=== PATIENT | female | born 1950 | race African-American/Black ===

== ENCOUNTER 2016-07-21 17:20 | Inpatient (IN) | payer MEDICARE, BC ==
[~2016-07-21 17:20] MED LIST: FOLI400T PO; LEVEMIR SQ; LISI-519 PO; METO50TA PO; PHOS667C5 PO; POTA-163 PO; REGL10TA5 PO
[2016-07-21 17:48] VITALS: BP 156/70; PULSE 62; RESP 15; TEMP 96.6; O2SAT 97
[2016-07-21 19:00] VITALS: BP 171/68; PULSE 76; RESP 17; TEMP 96.6; O2SAT 99
[2016-07-21] MEDS ORDERED: SODIUM CHLORIDE 0.9% FLUSH 10 ML FLUSH IV FLUSH PRN (20:00)
[2016-07-21] MEDS: PANTOPRAZOLE SOD 40 MG DELAYED RELEASE TAB PO SCH (20:00)
[2016-07-21] MEDS ORDERED: NALOXONE HCL 0.4 MG/ML AMP IV PRN (20:00)
[2016-07-21] MEDS ORDERED: Post-op Orders (for Pharmacy) MISC XX ONE (20:00)
[2016-07-21] MEDS ORDERED: MORPHINE SULFATE 4 MG/ML INJ IV PRN (20:00)
[2016-07-21] MEDS ORDERED: ONDANSETRON HCL 4 MG/2 ML VIAL IV PRN (20:00)
--- NOTE | 2016-07-21 20:14 | PD.CAR.PN ---
CVT Progress Note Subjective/Hospital Course: 65-year-old female who fell in the morbid theater and transferred to the emergency room and from there to [facility] for further observation. Patient sustained contusion of the left chest with a rib fracture and possibly small splenic contusion and will be admitted to my service for observation. Physical examination reveals pleasant 65-year-old lady awake alert and oriented Normocephalic Bilateral carotid pulses with faint right-sided bruit Chest with bilateral breath sounds and splinting of the left chest Abdomen is soft tender in left upper quadrant with mild rebound but no guarding. The pain is mainly over the lower rib cage rather than actual abdominal cavity Pelvis is stable extremities are within normal limits with good proximal and distal pulses and no deficit CT scan was preformed and all tone emergency room and revealed fracture of the left ninth rib and possibly small splenic laceration. In the context on questioning the splenic laceration issue for the seems to be almost an artifact on the CAT scan Either way patient this point is stable She will require peritoneal dialysis tonight and medicine has been consulted for management of her additional medical problems The exam, history, and the medical decision-making described in the above note were completed. I reviewed and agree with the findings presented. I attest that I had a [id number] encounter with the patient on the same day, and personally performed and documented my assessment and findings in the medical record. Critical care time 38 minutes. Objective: Vital Signs Date Time Temp Pulse Resp B/P Pulse Ox O2 Delivery O2 Flow Rate FiO2 07/21/16 17:48 96.6 62 15 156/70 97 Keaton Davis MD Jul 21, 2016 20:14
[2016-07-21] MEDS ORDERED: GLUCAGON 1 MG/ML VIAL OTHER PRN (20:15)
[2016-07-21] MEDS ORDERED: DEXTROSE 50% IN WATER 50 ML VIAL(D50) IV PUSH PRN (20:15)
[2016-07-21] MEDS: INSULIN ASPART SUPPLEMENTAL SCALE SQ SCH (21:00)
[2016-07-21] MEDS: SODIUM CHLORIDE 0.9% FLUSH 10 ML FLUSH IV FLUSH SCH (21:00)
[2016-07-21] MEDS: DOCUSATE SODIUM 100 MG CAP PO SCH (21:00)
[2016-07-21] MEDS: METOPROLOL TARTRATE 50 MG TAB PO SCH (22:30)
[2016-07-22] VITALS: BP 182/81; PULSE 66; RESP 17; TEMP 96.9; O2SAT 98
[2016-07-22 04:00] VITALS: BP 126/83; PULSE 43; RESP 18; TEMP 95.7; O2SAT 98
[2016-07-22] MEDS: INSULIN ASPART SUPPLEMENTAL SCALE SQ SCH ×4 (06:01→21:00)
--- NOTE | 2016-07-22 07:05 | RADRPT ---
EXAM DATE/TIME: 07/22/2016 06:15 [facility] COMPARISON: CHEST SINGLE AP, July 21, 2016, 13:45. INDICATIONS : Shortness of breath. MEDICAL HISTORY : Diabetes mellitus type II. Renal failure, chronic. SURGICAL HISTORY : ENCOUNTER: Subsequent ACUITY: 2 days PAIN SCORE: 5/10 LOCATION: Bilateral chest FINDINGS: Mild bibasilar atelectasis developing, left slightly more so than right. No perceptible effusion. No pneumothorax. Heart size stable, upper limits of normal. CONCLUSION: Mild bibasilar atelectasis developing. Kehinde Partida MD on July 22, 2016 at 7:04 Board Certified Radiologist. This report was verified electronically.
[2016-07-22 07:30] LABS: AUTOMATED NEUTROPHIL # 7.3 TH/MM3 (1.8-7.7); BASOPHIL # 0.1 TH/MM3 (0-0.2); BASOPHIL % 0.5 % (0.0-2.0); EOSINOPHIL % 0.5 % (0.0-4.0); HEMATOCRIT 40.4 % (35.0-46.0); HEMO FLAGS DIFF FINAL; LYMPH % 14.9 % (9.0-44.0); LYMPHOCYTE # 1.4 TH/MM3 (1.0-4.8); MEAN CELL VOLUME 93.1 FL (80.0-100.0); MEAN CORPUSCULAR HEMOGLOBIN 30.1 PG (27.0-34.0); MEAN CORPUSCULAR HGB CONC 32.3 % (32.0-36.0); MONO % 8.2 % (0.0-8.0); NEUT % 75.9 % (16.0-70.0); PLATELET COUNT 259 TH/MM3 (150-450); RED BLOOD COUNT 4.34 MIL/MM3 (4.00-5.30); RED CELL DISTRIBUTION WIDTH 15.1 % (11.6-17.2); WHITE BLOOD COUNT 9.6 TH/MM3 (4.0-11.0)
[2016-07-22 07:51] LABS: BICARBONATE 27.3 MEQ/L (21.0-32.0); POTASSIUM 3.6 MEQ/L (3.5-5.1)
[2016-07-22 07:54] VITALS: BP 120/65; PULSE 57; RESP 16; TEMP 96.6; O2SAT 100
--- NOTE | 2016-07-22 08:55 | PD.CONS ---
HPI Service Nephrology Consult Requested By Dr. Gaming Reason for Consult ESRD, on PD Primary Care Physician Unknown History of Present Illness Ms. Molina fell yesterday, suffered left sided rib fracture, chest and splenic contusion and was admitted to trauma service. Patient is on PD. I was notified of her admission late last evening. Dialysis was arranged. She appears to have ESRD, diabetes mellitus, and hypertension. Review of Systems Constitutional: COMPLAINS OF: Fatigue Cardiovascular: COMPLAINS OF: Chest pain Gastrointestinal: COMPLAINS OF: Abdominal pain Past Family Social History Allergies: Coded Allergies: Penicillin (Verified Allergy, Severe, Anaphylaxis, 07/21/16) Shellfish (Verified Allergy, Severe, Anaphylaxis, 07/21/16) Past Medical History ESRD, has been on PD for about a year. Type 2 diabetes Hypertension. Atrial fibrillation. Reported Medications Active Ordered Medications Current Medications Medications (Trade) Dose Ordered Sig/Valentin Route Start Time Stop Time Status Last Admin (NS Flush) 2 ml UNSCH PRN IV FLUSH 07/21/16 20:00 (NS Flush) 2 ml BID IV FLUSH 07/21/16 21:00 07/22/16 09:05 (Zofran Inj) 4 mg Q6H PRN IV 07/21/16 20:00 07/21/16 23:16 (Protonix) 40 mg Q24H PO 07/21/16 20:00 (Colace) 100 mg BID PO 07/21/16 21:00 07/22/16 09:05 (Percocet 5-325 Mg) 1 tab Q4H PRN PO 07/21/16 20:00 (Morphine Inj) 1 mg Q3H PRN IV 07/21/16 20:00 07/21/16 22:29 (Narcan Inj) 0.4 mg UNSCH PRN IV 07/21/16 20:00 (Prinivil) 5 mg DAILY PO 07/22/16 09:00 07/22/16 09:05 (Lopressor) 50 mg Q12HR PO 07/21/16 21:00 07/22/16 09:05 (D50w (Vial) Inj) 25 ml UNSCH PRN IV PUSH 07/21/16 20:15 (Glucagon Inj) 1 mg UNSCH PRN OTHER 07/21/16 20:15 (Milk Of Magnesia Liq) 30 ml HS PO 07/22/16 21:00 (Robaxin) 500 mg Q8H PO 07/22/16 09:00 07/22/16 09:05 (Lidoderm 5% Patch.12 Hr) 1 patch DAILY T-DERMAL 07/22/16 09:00 07/22/16 09:04 Miscellaneous Information 1 HS T-DERMAL 07/22/16 21:00 (KCl) 20 meq QID PO 07/22/16 13:00 Family History reviewed, noncontributory Social History , lives in [place], No Tobacco, no ETOH. Physical Exam Vital Signs Vital Signs Date Time Temp Pulse Resp B/P Pulse Ox O2 Delivery O2 Flow Rate FiO2 07/22/16 07:54 96.6 57 16 120/65 100 07/22/16 04:00 95.7 43 18 126/83 98 07/22/16 00:00 96.9 66 17 182/81 98 07/21/16 19:00 96.6 76 17 171/68 99 07/21/16 17:48 96.6 62 15 156/70 97 Physical Exam GENERAL: patient is awake, alert, no distress. SKIN: Warm and dry. HEAD: Normocephalic. EYES: No scleral icterus. No injection or drainage. NECK: Supple, trachea midline. No JVD or lymphadenopathy. CARDIOVASCULAR: Regular rate and rhythm without murmurs, gallops, or rubs. RESPIRATORY: Breath sounds equal bilaterally. No accessory muscle use. GASTROINTESTINAL: Abdomen soft, non-tender, nondistended. MUSCULOSKELETAL: No cyanosis, or edema. BACK: Nontender without obvious deformity. No CVA tenderness. Laboratory Laboratory Tests Test 07/22/16 06:55 White Blood Count 9.6 Red Blood Count 4.34 Hemoglobin 13.0 Hematocrit 40.4 Mean Corpuscular Volume 93.1 Mean Corpuscular Hemoglobin 30.1 Mean Corpuscular Hemoglobin 32.3 Concent Red Cell Distribution Width 15.1 Platelet Count 259 Mean Platelet Volume 8.3 Neutrophils (%) (Auto) 75.9 Lymphocytes (%) (Auto) 14.9 Monocytes (%) (Auto) 8.2 Eosinophils (%) (Auto) 0.5 Basophils (%) (Auto) 0.5 Neutrophils # (Auto) 7.3 Lymphocytes # (Auto) 1.4 Monocytes # (Auto) 0.8 Eosinophils # (Auto) 0.0 Basophils # (Auto) 0.1 CBC Comment DIFF FINAL Differential Comment Sodium Level 136 Potassium Level 3.6 Chloride Level 97 Carbon Dioxide Level 27.3 Anion Gap 12 Blood Urea Nitrogen 45 Creatinine 9.35 Estimat Glomerular Filtration 5 Rate Random Glucose 121 Calcium Level 8.8 Result Diagram: 07/22/1665407/22/16654 Assessment and Plan Problem List: (1) End stage renal disease Plan: We will continue dialysis as per her home regimen. 18 liters, total duration 10.5 hours. Patient reports that she does not make much urine. Monitor fluid and electrolytes. Avoid Gadolinium if MRI is indicated. (2) Type 2 diabetes mellitus Plan: Maintain blood glucose between 140 and 180. Insulin coverage. (3) Hypertension Plan: BP under control. Monitor. (4) Contusion of spleen Plan: Management per surgery. Assessment and Plan Thanks for the consult. She has [employer] equipment, transfer set was changed to [facility] yesterday. After discharge, she needs to call her dialysis unit and have a new transfer set placed. Angel Villalobos MD Jul 22, 2016 08:55
[2016-07-22] MEDS: LIDOCAINE HCL 5% PATCH T-DERMAL SCH (09:04)
[2016-07-22] MEDS: METOPROLOL TARTRATE 50 MG TAB PO SCH ×2 (09:05→21:00)
[2016-07-22] MEDS: LISINOPRIL 5 MG TAB PO SCH (09:05)
[2016-07-22] MEDS: SODIUM CHLORIDE 0.9% FLUSH 10 ML FLUSH IV FLUSH SCH ×2 (09:05→21:00)
[2016-07-22] MEDS: METHOCARBAMOL 500 MG TAB PO SCH ×2 (09:05→17:18)
[2016-07-22] MEDS: DOCUSATE SODIUM 100 MG CAP PO SCH ×2 (09:05→21:00)
--- NOTE | 2016-07-22 11:29 | HHI.PR ---
Subjective Subjective Notes PTD: 1 Objective Vitals/I&O Vital Signs Date Time Temp Pulse Resp B/P Pulse Ox O2 Delivery O2 Flow Rate FiO2 07/22/16 07:54 96.6 57 16 120/65 100 Labs Laboratory Tests Test 07/22/16 06:55 White Blood Count 9.6 Red Blood Count 4.34 Hemoglobin 13.0 Hematocrit 40.4 Mean Corpuscular Volume 93.1 Mean Corpuscular Hemoglobin 30.1 Mean Corpuscular Hemoglobin 32.3 Concent Red Cell Distribution Width 15.1 Platelet Count 259 Mean Platelet Volume 8.3 Neutrophils (%) (Auto) 75.9 Lymphocytes (%) (Auto) 14.9 Monocytes (%) (Auto) 8.2 Eosinophils (%) (Auto) 0.5 Basophils (%) (Auto) 0.5 Neutrophils # (Auto) 7.3 Lymphocytes # (Auto) 1.4 Monocytes # (Auto) 0.8 Eosinophils # (Auto) 0.0 Basophils # (Auto) 0.1 CBC Comment DIFF FINAL Differential Comment Sodium Level 136 Potassium Level 3.6 Chloride Level 97 Carbon Dioxide Level 27.3 Anion Gap 12 Blood Urea Nitrogen 45 Creatinine 9.35 Estimat Glomerular Filtration 5 Rate Random Glucose 121 Calcium Level 8.8 Cecile Storey [facility] Jul 22, 2016 11:29
--- NOTE | 2016-07-22 12:08 | PD.CONS ---
HPI Service [facility] Hospitalists Consult Requested By Dr. Davis Reason for Consult Medical management Primary Care Physician Unknown Diagnoses: History of Present Illness Patient is a 65-year-old female with past medical history of diabetes, CKD on peritoneal on dialysis, hypertension, hyperlipidemia, atrial fibrillation not on anticoagulation was admitted to the trauma service for rib fracture and splenic laceration. Patient states that she was at the movie theaters and somehow was about to sit down and fell between the seats. She hit herself on the left side of her chest and she started experiencing excruciating sharp pain rating it 10 out of 10 with no radiation. She states at that time she has some trouble breathing however this is improved with pain medications. Her pain currently is 6 out of 10. She had some nausea last night however this has resolved. She prefers taking Reglan instead of Zofran. Her chest pain is associated with movement. She currently denies any shortness of breath. She denies any nausea or vomiting at this time. No abdominal pain. She is getting her peritoneal dialysis at this time. She is concerned about her potassium pills. She tells me she takes 20 mEq 4 times a day. She also forgot to notify us that she is on atorvastatin 20 mg at bedtime. She denies any sore throat, runny nose, cough Hospitalist service was consulted for medical management. Review of Systems 10 point review of systems are negative except for those mentioned in the history of present illness. Past Family Social History Allergies: Coded Allergies: Penicillin (Verified Allergy, Severe, Anaphylaxis, 07/21/16) Shellfish (Verified Allergy, Severe, Anaphylaxis, 07/21/16) Past Medical History Diabetes, CK D on peritoneal dialysis, hypertension, hyperlipidemia, atrial fibrillation not on anticoagulation. Past Surgical History 2 C-sections, hysterectomy, cholecystectomy. Reported Medications Reported Meds & Active Scripts Active Reported Folic Acid 400 Mcg Tab 400 Mcg PO DAILY Reglan (Metoclopramide HCl) 10 Mg Tab Unknown Dose PO Metoprolol Tartrate 50 Mg Tab 50 Mg PO DAILY Levemir Inj (Insulin Detemir) 1,000 unit/ 10 ML Vial 20 Units SQ HS Do not mix with any other Insulin. Phoslo (Calcium Acetate (Phosphate Binder)) 667 Mg Cap 667 Mg PO TID take 2 capsules by mouth three times a day Potassium Chloride ER (Potassium Chloride) 20 Meq Tab 20 Meq PO 4 TIMES A DAY Lisinopril 5 Mg Tab 5 Mg PO DAILY Atorvastatin 20 mg at bedtime Family History Mother from a stroke and brain aneurysm. Father from a stroke and hypertension Social History Patient quit smoking 34 years ago. She used to smoke a pack a day for many years. Denies any alcohol use, denies illegal drug use Physical Exam Vital Signs Vital Signs Date Time Temp Pulse Resp B/P Pulse Ox O2 Delivery O2 Flow Rate FiO2 07/22/16 07:54 96.6 57 16 120/65 100 07/22/16 04:00 95.7 43 18 126/83 98 07/22/16 00:00 96.9 66 17 182/81 98 07/21/16 19:00 96.6 76 17 171/68 99 07/21/16 17:48 96.6 62 15 156/70 97 Physical Exam GENERAL: This is a well-nourished, well-developed patient, in no apparent distress. SKIN: No rashes, ecchymoses or lesions. Cool and dry. HEAD: Atraumatic. Normocephalic. No temporal or scalp tenderness. EYES: Pupils equal round and reactive. Extraocular motions intact. No scleral icterus. No injection or drainage. ENT: Nose without drainage. Throat without erythema, tonsillar hypertrophy or exudate. Uvula midline. Airway patent. NECK: Trachea midline. No JVD or lymphadenopathy. Supple, nontender, no meningeal signs. CARDIOVASCULAR: Regular rate and rhythm without murmurs. Patch over left chest noted. Tender to palpation along the rib cage RESPIRATORY: Clear to auscultation. Breath sounds equal bilaterally. No wheezes. GASTROINTESTINAL: Abdomen soft, non-tender, nondistended. Peritoneal dialysis catheter in place. No guarding. MUSCULOSKELETAL: Extremities without edema. No joint tenderness, effusion, or edema noted. No calf tenderness. Negative Homans sign bilaterally. NEUROLOGICAL: Awake and alert. Cranial nerves II through XII intact. Motor and sensory grossly within normal limits. Five out of 5 muscle strength in all muscle groups. Normal speech. Laboratory Laboratory Tests Test 07/22/16 06:55 White Blood Count 9.6 Red Blood Count 4.34 Hemoglobin 13.0 Hematocrit 40.4 Mean Corpuscular Volume 93.1 Mean Corpuscular Hemoglobin 30.1 Mean Corpuscular Hemoglobin 32.3 Concent Red Cell Distribution Width 15.1 Platelet Count 259 Mean Platelet Volume 8.3 Neutrophils (%) (Auto) 75.9 Lymphocytes (%) (Auto) 14.9 Monocytes (%) (Auto) 8.2 Eosinophils (%) (Auto) 0.5 Basophils (%) (Auto) 0.5 Neutrophils # (Auto) 7.3 Lymphocytes # (Auto) 1.4 Monocytes # (Auto) 0.8 Eosinophils # (Auto) 0.0 Basophils # (Auto) 0.1 CBC Comment DIFF FINAL Differential Comment Sodium Level 136 Potassium Level 3.6 Chloride Level 97 Carbon Dioxide Level 27.3 Anion Gap 12 Blood Urea Nitrogen 45 Creatinine 9.35 Estimat Glomerular Filtration 5 Rate Random Glucose 121 Calcium Level 8.8 Result Diagram: 07/22/1665407/22/16654 Imaging Last Impressions Chest X-Ray 07/22/16 06 Signed Impressions: Service Date/Time: Friday, July 22, 2016 06:15 - CONCLUSION: Mild bibasilar atelectasis developing. Kehinde Partida MD Assessment and Plan Assessment and Plan Rib fracture status post fall- pain control and management per general sx ? splenic lac laceration- management per gen sx. Diabetes- takes levemir 20units at home, currently on ISS and doing well. monitor BS. Hypertension- stable, on home meds. hydralazine prn BP>160/90. Monitor. Hyperlipidemia- I have resumed pt's atorvastatin. Thank you for allowing me to take part of Mrs. Molina's care, will follow. Code Status Full code Discussed Condition With Patient and Meliza Reyes MD Jul 22, 2016 12:08 Meliza Reyes MD Jul 22, 2016 12:08
[2016-07-22] MEDS ORDERED: hydrALAZINE HCL 10 MG TAB PO PRN (12:15)
[2016-07-22 12:20] VITALS: BP 119/59; PULSE 52; RESP 16; TEMP 96.9; O2SAT 98
[2016-07-22] MEDS ORDERED: DOCU1CAP39 PO (13:00)
[2016-07-22] MEDS ORDERED: MILKSUS PO (13:00)
[2016-07-22] MEDS ORDERED: OXYC1TAB63 PO (13:00)
[2016-07-22] MEDS ORDERED: diphenhydrAMINE HCL 25 MG CAP PO PRN (13:00)
[2016-07-22] MEDS: POTASSIUM CHLORIDE 20 MEQ CONTROLLED RELEASE TAB PO SCH ×3 (13:00→21:00)
--- NOTE | 2016-07-22 13:13 | HHI.DS ---
Discharge Summary Admission Date Jul 21, 2016 at 17:21 Discharge Date: Jul 22, 2016 Admitting Diagnosis (1) End stage renal disease Diagnosis: Secondary (2) Hypertension Diagnosis: Secondary (3) Type 2 diabetes mellitus Diagnosis: Secondary (4) Contusion of spleen Diagnosis: Principal (5) Hyperglycemia due to type 2 diabetes mellitus Diagnosis: Secondary Brief History Fall. CBC/BMP: 07/22/16 0655 07/22/16 0655 Significant Findings Laboratory Tests Test 07/22/16 06:55 Neutrophils (%) (Auto) 75.9 % (16.0-70.0) Monocytes (%) (Auto) 8.2 % (0.0-8.0) Chloride Level 97 MEQ/L (98-107) Blood Urea Nitrogen 45 MG/DL (7-18) Creatinine 9.35 MG/DL (0.50-1.00) Estimat Glomerular Filtration 5 ML/MIN (>89) Rate Random Glucose 121 MG/DL (74-106) Imaging Last Impressions Chest X-Ray 07/22/16 0600 Signed Impressions: Service Date/Time: Friday, July 22, 2016 06:15 - CONCLUSION: Mild bibasilar atelectasis developing. Kehinde Partida MD PE at Discharge GENERAL: This is a 65-year-old a female sitting up in bed in no acute distress. Pleasant and cooperative. SKIN: Warm and dry. HEAD: Atraumatic. Normocephalic. EYES: PERRLA ENT: No nasal bleeding or discharge. Mucous membranes pink and moist. NECK: Trachea midline. No JVD. CARDIOVASCULAR: Regular rate and rhythm. RESPIRATORY: No accessory muscle use. Lungs are clear to auscultation. Breath sounds equal bilaterally. No distress or dyspnea. GASTROINTESTINAL: BS + x 4 quads. Abdomen soft, non-tender, nondistended. Peritoneal dialysis catheter in place. MUSCULOSKELETAL: Extremities without cyanosis, or edema. + peripheral pulses x 4 extremities. Warm with good capillary refill and sensation. MAEW. NEUROLOGICAL: Awake and alert. Normal speech and pattern. Hospital Course PALA: This is a 65-year-old AA female who fell at the movie theater. INJURIES: Left chest contusion Left rib fracture (9) Splenic contusion? Consult: MANNY The patient is now tolerating a po diet. Eating and drinking well. Pain is being managed well with PO pain medications, and patient is being a provided with a script for pain meds upon discharge. (NO driving while taking narcotic pain medication enforced to patient.) Pt is having regular bowel movements, and have recommended to patient to continue with stool softeners while taking narcotic pain medications. Pt has been participating in PT while admitted at [facility] and has been ambulating with their assistance and independently . All follow up appointments have been provided and discussed with the patient. It is recommended that the patient keeps all his follow up appointments for continued recovery. Therefore, the patient is stable to be safely discharged home from a trauma surgery standpoint. Thank you for allowing us to participate in her care. We wish Dayana the best in her recovery. Pt Condition on Discharge: Stable Discharge Disposition: Discharge Home Discharge Instructions DIET: Follow Instructions for: Diabetic Diet Activities you can perform: Regular-No Restrictions Activities to Avoid: Driving for 24 hrs, Concussion Sports, Contact Sports, Strenuous Activity Cecile Storey Jul 22, 2016 13:12
[2016-07-22 16:50] VITALS: BP 124/58; PULSE 54; RESP 19; TEMP 98; O2SAT 99
[2016-07-22 20:00] VITALS: BP 116/69; PULSE 83; RESP 17; TEMP 96.6; O2SAT 98
[2016-07-22] MEDS: PANTOPRAZOLE SOD 40 MG DELAYED RELEASE TAB PO SCH (20:00)
[2016-07-22] MEDS: ATORVASTATIN 20 MG TAB PO SCH (21:00)
[2016-07-22] MEDS: INSULIN DETEMIR 100 UNITS/ML VIAL SQ SCH (21:00)
[2016-07-22] MEDS: MAGNESIUM HYDROXIDE SUSP 30 ML CUP PO SCH (21:00)
[2016-07-22] MEDS: REMOVE OLD LIDOCAINE PATCH T-DERMAL SCH (21:00)
[2016-07-22] MEDS: oxyCODONE/ACETAMINOPHEN 5 MG/325 MG TAB PO PRN (21:12)
[2016-07-23] VITALS (8 sets, daily range): BP systolic 104–152; BP diastolic 55–100; PULSE 46–109; RESP 16–19; TEMP 96.1–98.1; O2SAT 95–100
[2016-07-23] MEDS: METOCLOPRAMIDE HCL 10 MG/2 ML VIAL IV PUSH PRN ×3 (01:16→21:54)
[2016-07-23] MEDS: METHOCARBAMOL 500 MG TAB PO SCH ×3 (03:20→17:58)
[2016-07-23 05:49] LABS: AUTOMATED NEUTROPHIL # 7.2 TH/MM3 (1.8-7.7); BASOPHIL % 0.5 % (0.0-2.0); EOSINOPHIL # 0.1 TH/MM3 (0-0.4); EOSINOPHIL % 1.5 % (0.0-4.0); HEMATOCRIT 39.3 % (35.0-46.0); HEMO FLAGS DIFF FINAL; LYMPH % 15.3 % (9.0-44.0); LYMPHOCYTE # 1.5 TH/MM3 (1.0-4.8); MEAN CORPUSCULAR HEMOGLOBIN 30.1 PG (27.0-34.0); MEAN CORPUSCULAR HGB CONC 32.4 % (32.0-36.0); MONO % 8.1 % (0.0-8.0); NEUT % 74.6 % (16.0-70.0); PLATELET COUNT 239 TH/MM3 (150-450); RED BLOOD COUNT 4.23 MIL/MM3 (4.00-5.30); RED CELL DISTRIBUTION WIDTH 14.9 % (11.6-17.2); WHITE BLOOD COUNT 9.7 TH/MM3 (4.0-11.0)
[2016-07-23] MEDS: oxyCODONE/ACETAMINOPHEN 5 MG/325 MG TAB PO PRN (06:05)
[2016-07-23 06:16] LABS: ALT (GPT) 39 U/L (10-53); ANION GAP 12 MEQ/L (5-15); AST (GOT) 17 U/L (15-37); BICARBONATE 26.4 MEQ/L (21.0-32.0); BLOOD UREA NITROGEN 42 MG/DL (7-18); CHLORIDE 96 MEQ/L (98-107); GLOMERULAR FILTRATION RATE 5 ML/MIN (>89); MAGNESIUM 1.9 MG/DL (1.5-2.5); POTASSIUM 4.1 MEQ/L (3.5-5.1); SODIUM (NA) 134 MEQ/L (136-145)
[2016-07-23 06:18] LABS: ALKALINE PHOSPHATASE 60 U/L (45-117); TOTAL BILIRUBIN ADULT 0.4 MG/DL (0.2-1.0)
--- NOTE | 2016-07-23 06:31 | RADRPT ---
EXAM DATE/TIME: 07/23/2016 05:48 [facility] COMPARISON: CHEST SINGLE AP, July 22, 2016, 6:15. INDICATIONS : Follow up respiratory status. MEDICAL HISTORY : None. SURGICAL HISTORY : None. ENCOUNTER: Subsequent ACUITY: 4 - 6 days PAIN SCORE: 5/10 LOCATION: Bilateral chest FINDINGS: Mild bibasilar consolidation present, both side slightly worse in the interim. No perceptible effusio n or pneumothorax. Heart size stable, upper limits of normal. CONCLUSION: Bibasilar consolidation modestly worse in the interim. Kehinde Partida MD on July 23, 2016 at 6:28 Board Certified Radiologist. This report was verified electronically.
[2016-07-23] MEDS: INSULIN ASPART SUPPLEMENTAL SCALE SQ SCH ×4 (06:44→20:28)
[2016-07-23] MEDS: POTASSIUM CHLORIDE 20 MEQ CONTROLLED RELEASE TAB PO SCH ×4 (09:34→20:28)
[2016-07-23] MEDS: DOCUSATE SODIUM 100 MG CAP PO SCH ×2 (09:34→20:28)
[2016-07-23] MEDS: LISINOPRIL 5 MG TAB PO SCH (09:34)
[2016-07-23] MEDS: METOPROLOL TARTRATE 50 MG TAB PO SCH ×2 (09:34→20:29)
[2016-07-23] MEDS: LIDOCAINE HCL 5% PATCH T-DERMAL SCH (09:34)
[2016-07-23] MEDS: SODIUM CHLORIDE 0.9% FLUSH 10 ML FLUSH IV FLUSH SCH ×2 (09:52→20:29)
--- NOTE | 2016-07-23 09:55 | HHI.NPPN ---
Subjective Interval History patient was dialyzed last night. Trauma surgery has cleared her for discharge. Objective Data Data 07/22/16 07/23/16 19:00 07:00 Intake Total 860 ml 840 ml Output Total 836 ml Balance 24 ml 840 ml Intake Oral 860 ml 840 ml Output Peritoneal Fluid 836 ml # Voids 1 0 # Bowel Movements 0 Vital Signs Date Time Temp Pulse Resp B/P Pulse Ox O2 Delivery O2 Flow Rate FiO2 07/23/16 08:25 98 Nasal Cannula 1.00 07/23/16 07:41 97.1 58 18 117/75 98 07/23/16 03:10 52 19 104/56 96 07/23/16 00:00 96.2 109 18 107/59 95 07/22/16 20:00 96.6 83 17 116/69 98 07/22/16 16:50 98.0 54 19 124/58 99 07/22/16 12:20 96.9 52 16 119/59 98 -: 07/23/16 0511 07/23/16 0511 Physical Exam General Appearance: Well Developed, No Acute Distress Eyes Eye Exam: Pupils Equal Throat Throat Exam: Oral Mucosa [place] & Moist Neck Neck Exam: Neck Supple Pulmonary Resp Exam: Clear Bilaterally Cardiology CV Exam: Regular, Normal Sinus Rhythm Gastrointestinal/Abdomen GI Exam: Soft, Non-Tender, Bowel Sounds Present Musculoskeletal MS Exam: Joints Intact Integumentary Skin Exam: Clear, Intact Extremeties Extremities Exam: No Edema Neurologic Neuro Exam: Alert, Awake, Oriented, Moving All Extremities Assessment/Plan Problem List: (1) End stage renal disease Plan: We will continue dialysis as per her home regimen. 18 liters, total duration 10.5 hours. Patient reports that she does not make much urine. Monitor fluid and electrolytes. Avoid Gadolinium if MRI is indicated. (2) Type 2 diabetes mellitus Plan: Maintain blood glucose between 140 and 180. Insulin coverage. (3) Hypertension Plan: BP under control. Monitor. (4) Contusion of spleen Plan: Management per surgery. Plan Patient had a transfer set made by [employer]. Unfortunately, instead of using the adapter, manufacturing applications engineer removed the transfer set and changed to [facility] set. Now the patient will have to go back to her PD clinic to change it back to [employer] transfer set as this hospital does not carry that set. Patient likes to stay in the hospital tonight, undergo PD and get discharged tomorrow. She was advised to go to her PD clinic immediately after discharge. Angel Villalobos MD Jul 23, 2016 09:55
--- NOTE | 2016-07-23 11:29 | HHI.PR ---
Subjective Subjective Notes PTD: 2 Pt wants to stay in the hospital overnight due to dialysis catheter/adapter change. Objective Vitals/I&O Vital Signs Date Time Temp Pulse Resp B/P Pulse Ox O2 Delivery O2 Flow Rate FiO2 07/23/16 11:24 96.2 46 16 113/55 95 07/23/16 08:25 Nasal Cannula 1.00 Labs Laboratory Tests Test 07/23/16 05:11 White Blood Count 9.7 Red Blood Count 4.23 Hemoglobin 12.7 Hematocrit 39.3 Mean Corpuscular Volume 93.0 Mean Corpuscular Hemoglobin 30.1 Mean Corpuscular Hemoglobin 32.4 Concent Red Cell Distribution Width 14.9 Platelet Count 239 Mean Platelet Volume 8.2 Neutrophils (%) (Auto) 74.6 Lymphocytes (%) (Auto) 15.3 Monocytes (%) (Auto) 8.1 Eosinophils (%) (Auto) 1.5 Basophils (%) (Auto) 0.5 Neutrophils # (Auto) 7.2 Lymphocytes # (Auto) 1.5 Monocytes # (Auto) 0.8 Eosinophils # (Auto) 0.1 Basophils # (Auto) 0.0 CBC Comment DIFF FINAL Differential Comment Sodium Level 134 Potassium Level 4.1 Chloride Level 96 Carbon Dioxide Level 26.4 Anion Gap 12 Blood Urea Nitrogen 42 Creatinine 9.14 Estimat Glomerular Filtration 5 Rate Random Glucose 142 Calcium Level 8.6 Magnesium Level 1.9 Total Bilirubin 0.4 Aspartate Amino Transf 17 (AST/SGOT) Alanine Aminotransferase 39 (ALT/SGPT) Alkaline Phosphatase 60 Total Protein 6.7 Albumin 2.9 Radiology Last Impressions Chest X-Ray 07/23/16 0600 Signed Impressions: Service Date/Time: Saturday, July 23, 2016 05:48 - CONCLUSION: Bibasilar consolidation modestly worse in the interim. Kehinde Partida MD Narrative Exam GENERAL: This is a 65-year-old a female sitting up in bed in no acute distress. Pleasant and cooperative. SKIN: Warm and dry. HEAD: Atraumatic. Normocephalic. EYES: PERRLA ENT: No nasal bleeding or discharge. Mucous membranes pink and moist. NECK: Trachea midline. No JVD. CARDIOVASCULAR: Regular rate and rhythm. RESPIRATORY: No accessory muscle use. Lungs are clear to auscultation. Breath sounds equal bilaterally. No distress or dyspnea. GASTROINTESTINAL: BS + x 4 quads. Abdomen soft, non-tender, nondistended. Peritoneal dialysis catheter in place. MUSCULOSKELETAL: Extremities without cyanosis, or edema. + peripheral pulses x 4 extremities. Warm with good capillary refill and sensation. MAEW. NEUROLOGICAL: Awake and alert. Normal speech and pattern. A/P Problem List: (1) End stage renal disease (2) Hypertension (3) Type 2 diabetes mellitus (4) Contusion of spleen (5) Hyperglycemia due to type 2 diabetes mellitus Assessment and Plan KIVALINA: This is a 65 year old AA female who [place] a [place] a movie theater. PMHx: peritoneal dialysis INJURIES: LEFT chest contusion LEFT rib fx (9) ? splenic contusion? Consults: [facility], Nephrology. Diet: 2000 ADA diet. Tolerating po diet. Encourage good po intake. PULM: Encourage good pulmonary toileting. IS at bedside and pt encouraged to use. Rationale for use explained to patient, and verbalized understanding. PAIN MGT: Percocet po and Morphine IV for breakthrough pain. Robaxin po. Lidoderm patch. Activity: OOB as tolerated. PT ordered. GI proph: Protonix po. Bowel regimen: Colace and MOM. LBM = 0. DVT proph: Mechanical VTE with SCDs. Chemical management not applicable at this time. DC Planning: Case management consulted for discharge planning. Pt was discharged yesterday, however she did not go home as there was a problem with an adapter that was placed on her peritoneal dialysis catheter, and she did not have her original piece and could not receive dialysis at home without it. De does not carry the adapter she needs, however both the director multimedia and Food Demonstrator state that she may go home, skip carmel's dialysis session, and report to the dialysis clinic for the piece she needs on Sunday morning. The patient does not want to go home. She wants to stay in the hospital again overnight. She is clear for discharge from a trauma surgery standpoint, and she has been cleared to DC by Dr. Villalobos. There is no medical reason for the patient to stay in the hospital at this time. Emotional support provided to patient and family at bedside and plan of care discussed. Discussed with RN at bedside. Patient is hemodynamically stable and being management on the med/surg floor. Cecile Storey Jul 23, 2016 11:29
[2016-07-23] MEDS ORDERED: LIDO5DIS35 T-DERMAL (11:38)
--- NOTE | 2016-07-23 13:37 | PD.CAR.PN ---
CVT Progress Note Subjective/Hospital Course: 65-year-old female who fell in the morbid theater and transferred to the emergency room and from there to [facility] for further observation. Patient sustained contusion of the left chest with a rib fracture and possibly small splenic contusion and will be admitted to my service for observation. Physical examination reveals pleasant 65-year-old lady awake alert and oriented Normocephalic Bilateral carotid pulses with faint right-sided bruit Chest with bilateral breath sounds and splinting of the left chest Abdomen is soft tender in left upper quadrant with mild rebound but no guarding. The pain is mainly over the lower rib cage rather than actual abdominal cavity Pelvis is stable extremities are within normal limits with good proximal and distal pulses and no deficit CT scan was preformed and all tone emergency room and revealed fracture of the left ninth rib and possibly small splenic laceration. In the context on questioning the splenic laceration issue for the seems to be almost an artifact on the CAT scan Either way patient this point is stable She will require peritoneal dialysis tonight and medicine has been consulted for management of her additional medical problems The exam, history, and the medical decision-making described in the above note were completed. I reviewed and agree with the findings presented. I attest that I had a [id number] encounter with the patient on the same day, and personally performed and documented my assessment and findings in the medical record. Critical care time 38 minutes. 07/23/2016 Patient with a left rib fracture and possibly tiny splenic contusion Patient was discharged yesterday however some peace for her peritoneal dialysis catheter was missing so it appears patient stayed overnight. I was not informed about this rather found patient today still in hospital Patient also refuses to leave today because the above-mentioned respective piece of equipment for her dialysis connection has not been found and patient demands to be dialyzed tonight Dr. Aggarwal lopper does not think that patient needs dialysis tonight and can safely be dialyzed tomorrow morning I completely agree with the lopper and do not see any medical reason for patient to remain in hospital Discussed the nursing egg processing supervisor as far as patient's disposition and issues described above From medical point patient does not require hospitalization in remains here only for a logistical and social reasons Objective: Vital Signs Date Time Temp Pulse Resp B/P Pulse Ox O2 Delivery O2 Flow Rate FiO2 07/23/16 11:24 96.2 46 16 113/55 95 07/23/16 08:25 98 Nasal Cannula 1.00 07/23/16 07:41 97.1 58 18 117/75 98 07/23/16 03:10 52 19 104/56 96 07/23/16 00:00 96.2 109 18 107/59 95 07/22/16 20:00 96.6 83 17 116/69 98 07/22/16 16:50 98.0 54 19 124/58 99 Labs: Laboratory Tests Test 07/23/16 05:11 White Blood Count 9.7 TH/MM3 (4.0-11.0) Red Blood Count 4.23 MIL/MM3 (4.00-5.30) Hemoglobin 12.7 GM/DL (11.6-15.3) Hematocrit 39.3 % (35.0-46.0) Mean Corpuscular Volume 93.0 FL (80.0-100.0) Mean Corpuscular Hemoglobin 30.1 PG (27.0-34.0) Mean Corpuscular Hemoglobin 32.4 % Concent (32.0-36.0) Red Cell Distribution Width 14.9 % (11.6-17.2) Platelet Count 239 TH/MM3 (150-450) Mean Platelet Volume 8.2 FL (7.0-11.0) Neutrophils (%) (Auto) 74.6 % (16.0-70.0) Lymphocytes (%) (Auto) 15.3 % (9.0-44.0) Monocytes (%) (Auto) 8.1 % (0.0-8.0) Eosinophils (%) (Auto) 1.5 % (0.0-4.0) Basophils (%) (Auto) 0.5 % (0.0-2.0) Neutrophils # (Auto) 7.2 TH/MM3 (1.8-7.7) Lymphocytes # (Auto) 1.5 TH/MM3 (1.0-4.8) Monocytes # (Auto) 0.8 TH/MM3 (0-0.9) Eosinophils # (Auto) 0.1 TH/MM3 (0-0.4) Basophils # (Auto) 0.0 TH/MM3 (0-0.2) CBC Comment DIFF FINAL Differential Comment Sodium Level 134 MEQ/L (136-145) Potassium Level 4.1 MEQ/L (3.5-5.1) Chloride Level 96 MEQ/L (98-107) Carbon Dioxide Level 26.4 MEQ/L (21.0-32.0) Anion Gap 12 MEQ/L (5-15) Blood Urea Nitrogen 42 MG/DL (7-18) Creatinine 9.14 MG/DL (0.50-1.00) Estimat Glomerular Filtration 5 ML/MIN (>89) Rate Random Glucose 142 MG/DL (74-106) Calcium Level 8.6 MG/DL (8.5-10.1) Magnesium Level 1.9 MG/DL (1.5-2.5) Total Bilirubin 0.4 MG/DL (0.2-1.0) Aspartate Amino Transf 17 U/L (15-37) (AST/SGOT) Alanine Aminotransferase 39 U/L (10-53) (ALT/SGPT) Alkaline Phosphatase 60 U/L (45-117) Total Protein 6.7 GM/DL (6.4-8.2) Albumin 2.9 GM/DL (3.4-5.0) Result Diagram: 07/23/16 0511 07/23/16 0511 Keaton Davis MD Jul 23, 2016 13:37
[2016-07-23] MEDS ORDERED: AZIT500T2 PO (14:15)
--- NOTE | 2016-07-23 14:15 | HHI.PR ---
Subjective Remarks Pt tells me that she is feeling better, feels a bit tired as she sat for 2 hours on a chair and now wants to take a nap. rib pain controlled. denies any coughing, fevers or chills. denies any nausea or vomiting. Objective Vitals Vital Signs Date Time Temp Pulse Resp B/P Pulse Ox O2 Delivery O2 Flow Rate FiO2 07/23/16 11:24 96.2 46 16 113/55 95 07/23/16 08:25 98 Nasal Cannula 1.00 07/23/16 07:41 97.1 58 18 117/75 98 07/23/16 03:10 52 19 104/56 96 07/23/16 00:00 96.2 109 18 107/59 95 07/22/16 20:00 96.6 83 17 116/69 98 07/22/16 16:50 98.0 54 19 124/58 99 I/O 07/22/16 07/22/16 07/22/16 07/23/16 07/23/16 07/23/16 07:00 15:00 23:00 07:00 15:00 23:00 Intake Total 100 ml 860 ml 600 ml 240 ml Output Total 836 ml 585 ml Balance 100 ml 860 ml -236 ml 240 ml -585 ml Intake Oral 100 ml 860 ml 600 ml 240 ml Output Peritoneal Fluid 836 ml 585 ml # Voids 0 1 0 0 # Bowel Movements 0 0 0 Result Diagram: 07/23/16 0511 07/23/16 0511 Imaging Last Impressions Chest X-Ray 07/23/16 0600 Signed Impressions: Service Date/Time: Saturday, July 23, 2016 05:48 - CONCLUSION: Bibasilar consolidation modestly worse in the interim. Kehinde Partida MD Objective Remarks GENERAL: This is a well-nourished, well-developed patient, in no apparent distress. CARDIOVASCULAR: Regular rate and rhythm without murmurs. Tender to palpation along the rib cage RESPIRATORY: Clear to auscultation. Breath sounds equal bilaterally. No wheezes. GASTROINTESTINAL: Abdomen soft, non-tender, nondistended. Peritoneal dialysis catheter in place. No guarding. MUSCULOSKELETAL: Extremities without edema. No joint tenderness, effusion, or edema noted. No calf tenderness. Negative Homans sign bilaterally. NEUROLOGICAL: Awake and alert. Cranial nerves II through XII intact. Normal speech. A/P Assessment and Plan Rib fracture status post fall- pain control and management per general sx ? splenic lac laceration- management per gen sx. Diabetes- on levemir 20units at home, currently on ISS and doing well. monitor BS and thus far controlled. Hypertension- stable, on home meds. hydralazine prn BP>160/90. Monitor. Hyperlipidemia- on atorvastatin. CKD w peritoneal dialysis, nephrology following. Apparently connector for her home dialysis is missing and pt cannot be discharged today. Hoping to go home early tomorrow when new adapter received. itching:resolved. benadryl prn. nausea: on prn reglan per pt's request I have personally reviewed pt's chest x-ray today and reviewed report. There is some concerns for early basilar consolidation. Pt is at risk of developing PNA due to the pain and most likely not taking deep breaths. Encouraged use of IS q1hr while awake, both pt and say that she will do that. In addition, will treat w 5 days of azithromycin, one dose now. Will leave script for additional 4 days in chart. Overall pt is doing well. From a medical standpoint she can be discharged. Please reconsult as needed. Discharge Planning per primary team Meliza Reyes MD Jul 23, 2016 14:15
[2016-07-23] MEDS: AZITHROMYCIN 250 MG TAB PO SCH (15:55)
[2016-07-23] MEDS: INSULIN DETEMIR 100 UNITS/ML VIAL SQ SCH (20:27)
[2016-07-23] MEDS: ATORVASTATIN 20 MG TAB PO SCH (20:28)
[2016-07-23] MEDS: PANTOPRAZOLE SOD 40 MG DELAYED RELEASE TAB PO SCH (20:28)
[2016-07-23] MEDS: REMOVE OLD LIDOCAINE PATCH T-DERMAL SCH (20:29)
[2016-07-23] MEDS: MAGNESIUM HYDROXIDE SUSP 30 ML CUP PO SCH (21:00)
[2016-07-24] VITALS: BP 111/57; PULSE 50; RESP 16; TEMP 96.8; O2SAT 98
[2016-07-24] MEDS: METHOCARBAMOL 500 MG TAB PO SCH ×2 (00:25→08:53)
[2016-07-24] MEDS: INSULIN ASPART SUPPLEMENTAL SCALE SQ SCH (07:00)
[2016-07-24 08:00] VITALS: BP 119/58; PULSE 53; RESP 14; TEMP 95.4; O2SAT 94
[2016-07-24] MEDS: LIDOCAINE HCL 5% PATCH T-DERMAL SCH (08:52)
[2016-07-24] MEDS: LISINOPRIL 5 MG TAB PO SCH (08:53)
[2016-07-24] MEDS: AZITHROMYCIN 250 MG TAB PO SCH (08:53)
[2016-07-24] MEDS: DOCUSATE SODIUM 100 MG CAP PO SCH (08:53)
[2016-07-24] MEDS: METOPROLOL TARTRATE 50 MG TAB PO SCH (08:54)
[2016-07-24] MEDS: POTASSIUM CHLORIDE 20 MEQ CONTROLLED RELEASE TAB PO SCH ×2 (08:58→09:09)
[2016-07-24] MEDS: SODIUM CHLORIDE 0.9% FLUSH 10 ML FLUSH IV FLUSH SCH (09:00)
== END 2016-07-24 10:28 | disposition home or self-care (01) | DRG 814 ==
LOC: NEDDLT 17:20 → OBSVTOIN 17:21 → N06B 17:21
PROVIDERS: ADMIT Surgery; ATTEND Surgery
PROC: 3E1M39Z Irrigation of Peritoneal Cavity using Dialysate, Percutaneous Approach (ICD-10-PCS; principal; 2016-07-21)
DX: S36.029A Unspecified contusion of spleen, initial encounter (principal); N18.6 End stage renal disease; S22.32XA Fracture of one rib, left side, initial encounter for closed fracture; E11.22 Type 2 diabetes mellitus with diabetic chronic kidney disease; I12.0 Hypertensive chronic kidney disease with stage 5 chronic kidney disease or end stage renal disease; S20.212A Contusion of left front wall of thorax, initial encounter; W18.30XA Fall on same level, unspecified, initial encounter; Y93.9 Activity, unspecified; Y92.26 Movie house or cinema as the place of occurrence of the external cause; Y99.9 Unspecified external cause status; Z99.2 Dependence on renal dialysis; Z88.0 Allergy status to penicillin; Z91.013 Allergy to seafood; I48.91 Unspecified atrial fibrillation; E78.5 Hyperlipidemia, unspecified; F17.210 Nicotine dependence, cigarettes, uncomplicated; E11.65 Type 2 diabetes mellitus with hyperglycemia
CPT/HCPCS: 71010; 71100; 74176; 80048; 80053; 82948; 83735; 85007; 85025; 85027; 90935; 94150; 94640; 94667; 96374; 96376; 99281; J1815; J2270; J2405; J2765